=== PATIENT | female | born 1990 | race African-American/Black ===

== ENCOUNTER 2019-05-09 15:41 | Emergency (ER) | payer SELFPAY ==
[~2019-05-09] VITALS: Ht 162.6 cm; Wt 61.5 kg
[~2019-05-09 15:41] MED LIST: AMOX500C2 PO; IBUP-1542 PO; TRAM50TA2 PO
[2019-05-09 15:59] VITALS: BP 140/68; PULSE 87; RESP 18; Ht 162.6 cm; Wt 61.5 kg
[2019-05-09] MEDS ORDERED: AMOXICILLIN 500 MG CAP PO ONE (16:30)
[2019-05-09] MEDS ORDERED: IBUPROFEN 600 MG TAB PO ONE (16:30)
== END 2019-05-09 17:07 | disposition home or self-care (01) ==
LOC: FTE 15:41
DX: K08.9 Disorder of teeth and supporting structures, unspecified (principal)
CPT/HCPCS: 99283